=== PATIENT | female | born 1975 | race Hispanic/Latino ===

== ENCOUNTER 2018-05-01 09:21 | Observation (INO) | payer OTHER ==
[~2018-05-01] VITALS: Ht 160 cm; Wt 99.8 kg
--- NOTE | 2018-05-01 09:59 | NUR ---
USED [employer] TO PERFORM ASSESSMENT ON PT
[2018-05-01 10:07] LABS: BASOPHILS % 0.5 % (0.0-1.0); EOSINOPHILS # (AUTO) 0.3 (0.0-0.4); EOSINOPHILS % 3.9 % (0.0-6.0); LYMPHOCYTES # (AUTO) 2.4 (1.0-3.2); LYMPHOCYTES % 36.1 % (18.0-39.1); MEAN CORPUSCULAR HEMOGLOBIN 29.8 pg (28-32); MEAN CORPUSCULAR HGB CONC 33.3 g/dL (31-35); MEAN CORPUSCULAR VOLUME 89.3 fL (81-99); MONOCYTES # (AUTO) 0.4 (0.2-0.8); MONOCYTES % 6.5 % (4.4-11.3); NEUTROPHILS # (AUTO) 3.5 (2.1-6.9); NEUTROPHILS % 52.8 % (38.7-80.0); PLATELET COUNT 303 x10e3/uL (140-360); RED BLOOD COUNT 4.03 x10e6/uL (3.6-5.1); RED CELL DISTRIBUTION WIDTH 13.3 % (11.7-14.4)
[2018-05-01 10:24] LABS: INR 0.92; PROTHROMBIN TIME 13.2 seconds (11.9-14.5)
[2018-05-01 10:25] LABS: PARTIAL THROMBOPLASTIN TIME 30.3 seconds (23.8-35.5)
[2018-05-01 10:28] LABS: ALANINE AMINOTRANSFERASE 20 IU/L (0-55); ALBUMIN 3.7 g/dL (3.5-5.0); ALBUMIN/GLOBULIN RATIO 1.1 (0.8-2.0); ALKALINE PHOSPHATASE 53 IU/L (40-150); ANION GAP 12.2 mmol/L (8-16); BLOOD UREA NITROGEN 9 mg/dL (7-26); BUN/CREATININE RATIO 14 (6-25); CALCIUM 8.4 mg/dL (8.4-10.2); CARBON DIOXIDE 24 mmol/L (22-29); CHLORIDE 107 mmol/L (98-107); CREATINE KINASE 55 IU/L (29-168); CREATININE, SERUM 0.64 mg/dL (0.57-1.11); EST GLOMERULAR FILTRATION RATE > 60 ML/MIN (60-); GLUCOSE 97 mg/dL (74-118); POTASSIUM 4.2 mmol/L (3.5-5.1); SODIUM 139 mmol/L (136-145)
[2018-05-01 10:30] LABS: CLARITY,URINE CLEAR (CLEAR); COLOR,URINE YELLOW (YELLOW)
[2018-05-01 10:31] LABS: BACTERIA,URINE FEW /HPF; BILIRUBIN,URINE NEGATIVE (NEGATIVE); EPITHELIAL CELLS,URINE FEW /LPF; KETONES,URINE NEGATIVE (NEGATIVE); LEUKOCYTE ESTERASE ,URINE NEGATIVE (NEGATIVE); NITRITE,URINE NEGATIVE (NEGATIVE); PROTEIN,URINE DIPSTICK NEGATIVE (NEGATIVE); URINE UROBILINOGEN 0.2 mg/dL (0.2 - 1)
[2018-05-01] MEDS ORDERED: SODIUM CHLORIDE 0.9% 1000ML 1,000 ML IV STA (10:33)
--- NOTE | 2018-05-01 11:05 | Diagnostic Imaging Report ---
EXAMINATION: CHEST 2 VIEWS INDICATION: Chest pain. COMPARISON: None FINDINGS: TUBES and LINES: None. LUNGS: Lungs are well inflated. Mild patchy left basilar opacity, likely atelectasis. There is no evidence of pneumonia or pulmonary edema. PLEURA: No pleural effusion or pneumothorax. HEART AND MEDIASTINUM: The cardiomediastinal silhouette is unremarkable. BONES AND SOFT TISSUES: No acute osseous lesion. Soft tissues are unremarkable. UPPER ABDOMEN: No free air under the diaphragm. IMPRESSION: No acute radiographic abnormality. Signed by: Dr. Deni Martin MD on 05/01/2018 11:01 AM
--- NOTE | 2018-05-01 11:18 | Diagnostic Imaging Report ---
Examination: CT head without contrast Clinical Indication: Headache. Technique: Transaxial noncontrast images from the skull base through the vertex were obtained. Sagittal and coronal reformatted images were done. Dose modulation, iterative reconstruction, and/or weight based adjustment of the mA/kV was utilized to reduce the radiation dose to as low as reasonably achievable. Comparison: None. Findings: Scalp: No abnormalities. Bones: Intact. No fractures. No blastic or lytic lesions. Brain sulci: Appropriate for patient's age. Ventricles: Normal in size and configuration. No hydrocephalus. Extra-axial space: No abnormalities. Parenchyma: No abnormal densities. No masses, hemorrhage, or acute or chronic cortical based vascular insults. Suprasellar region: No abnormalities. Craniocervical junction: The foramen magnum is patent. No Chiari one malformation. Impression: No intracranial abnormality. Signed by: Dr. Lora Manuel M.D. on 05/01/2018 11:15 AM
[2018-05-01] MEDS ORDERED: DIPHENHYDRAMINE HCL INJ 50 MG/ML VIAL IV ONE (11:30)
[2018-05-01] MEDS ORDERED: METOCLOPRAMIDE HCL 10 MG/2ML VIAL IV ONE (11:30)
[2018-05-01] MEDS ORDERED: KETOROLAC TROMETHAMINE 30 MG/ML VIAL IV ONE (11:30)
--- NOTE | 2018-05-01 11:36 | NUR ---
pt states h/a now 08/22 after previously stating it was 11/22 and is no longer photosentive/loud noises; pt also states pain in chest now 06/22 after previously stating pain 10/22
[2018-05-01] MEDS ORDERED: NITROGLYCERIN 0.4 MG SUBL SL PRN (11:45)
[2018-05-01] MEDS ORDERED: ONDANSETRON HCL INJ 2MG/ML 2ML 2 MG/ML VIAL IV PRN (11:45)
--- OUTSIDE RECORDS SUMMARY | 2018-05-01 11:52 | XMS REPORT ---
Author [facility] Address Unknown Phone Unavailable Care Team Providers Care Director Motion Picture Name Role Phone Keely KRAUSE Unavailable Unavailable Problems This patient has no known problems. Allergies, Adverse Reactions, Alerts This patient has no known allergies or adverse reactions. Medications This patient has no known medications. Results Test Description Test Time Test Comments Text Results Atomic Results Result Comments CT BRAIN WO 2018-05-01 11:13:00 [place] [id number] Patient Name: ADEEL WINKLER MR #: [id number] : 1975 Age/Sex: 42/F Req #: [id number] Adm Physician: Ordered by: COLLINS KRAUSE MD Report #: [id number] Location: ER Room/Bed: Procedure: [id number] CT/CT BRAIN WO Exam Date: 05/01/18 Exam Time: 1040 REPORT STATUS: Signed Examination: CT head without contrast Clinical Indication: Headache. Technique: Transaxial noncontrast images from the skull base through the vertex were obtained. Sagittal and coronal reformatted images were done. Dose modulation, iterative reconstruction, and/or weight based adjustment of the mA/kV was utilized to reduce the radiation dose to as low as reasonably achievable. Comparison: None. Findings: Scalp: No abnormalities. Bones: Intact. No fractures. No blastic or lytic lesions. Brain sulci: Appropriate for patient's age. Ventricles: Normal in size and configuration. No hydrocephalus. Extra-axial space: No abnormalities. Parenchyma: No abnormal densities. No masses, hemorrhage, or acute or chronic cortical based vascular insults. Suprasellar region: No abnormalities. Craniocervical junction: The foramen magnum is patent. No Chiari one malformation. Impression: No intracranial abnormality. Signed by: Dr. Lora Manuel M.D. on 05/01/2018 11:15 AM Dictated By: LORA MARTIN MD 1115 Transcribed By: RALPH on 05/01/18 1115 COPY TO: COLLINS KRAUSE MD CHEST 2 VIEWS 2018-05-01 11:00:00 [place] [address] Patient Name: ADEEL WINKLER MR #: [id number] : 1975 Age/Sex: 42/F Req #: [id number] Adm Physician: Ordered by: COLLINS KRAUSE MD Report #: [id number] Location: ER Room/Bed: Procedure: [id number] DX/CHEST 2 VIEWS Exam Date: 05/01/18 Exam Time: 1040 REPORT STATUS: Signed EXAMINATION: CHEST 2 VIEWS INDICATION: Chest pain. COMPARISON: None FINDINGS: TUBES and LINES: None. LUNGS: Lungs are well inflated. Mild patchy left basilar opacity, likely atelectasis. There is no evidence of pneumonia or pulmonary edema. PLEURA: No pleural effusion or pneumothorax. HEART AND MEDIASTINUM: The cardiomediastinal silhouette is unremarkable. BONES AND SOFT TISSUES: No acute osseous lesion. Soft tissues are unremarkable. UPPER ABDOMEN: No free air under the diaphragm. IMPRESSION: No acute radiographic abnormality. Signed by: Dr. Amol Mauricio MD on 05/01/2018 11:01 AM Dictated By: AMOL MAURICIO MD 1101 Transcribed By: RALPH on 05/01/18 110 COPY TO: COLLINS KRAUSE MD
[2018-05-01] MEDS ORDERED: ASPIRIN 81 MG CHEW TAB PO ONE (12:30)
[2018-05-01 13:11] VITALS: BP 123/67
--- NOTE | 2018-05-01 13:24 | NUR ---
Received patient from ER, admitted to observation, 42 y.o Wolof speaking female with c/o chest pains radiating to left shoulder started last night lasting a few minutes and comes and goes, describes pain as crushing, associated symptoms are headaches but and has PMH of chronic headaches, had not taken any thing for the pains. HENT: Head atraumatic, normocephalic, Nose patient, throat clear, no exudates, no drainage, Eyes: Anicteric, no drainage GI: ABSNTND, BS positive all quads Respiratory: CTAB, no respiratory distress Cardiology: Normal S1, S2, no S3, S4 noted, no M/R/G : Supple Skin: Warm and moist, no open skin areas, no rash Extremities: +2 DPD and TPP Musculoskeletal: Moves all extremities Neuro: Alert and responsive, Patient on Tele #34 and SR at this time, call light within reach, will monitor
[2018-05-01 13:38] VITALS: BP 123/67
[2018-05-01] MEDS ORDERED: FAMOTIDINE 20 MG/2 ML VIAL IV SCH (19:00)
--- NOTE | 2018-05-01 19:00 | NUR ---
received report from day shift. patient is awake in bed. daughter at the bedside. no pain or distress. call light within reach
[2018-05-01 19:07] LABS: CREATINE KINASE 51 IU/L (29-168)
[2018-05-01 20:00] VITALS: BP 123/58
[2018-05-02] VITALS (7 sets, daily range): BP systolic 111–131; BP diastolic 61–70
[2018-05-02 04:02] LABS: CREATINE KINASE MB 0.6 ng/mL (0-5.0)
[2018-05-02 05:35] LABS: BASOPHILS % 0.5 % (0.0-1.0); EOSINOPHILS # (AUTO) 0.3 (0.0-0.4); HEMATOCRIT 34.5 % (34.2-44.1); HEMOGLOBIN 11.5 g/dL (12.0-16.0); LYMPHOCYTES # (AUTO) 2.4 (1.0-3.2); LYMPHOCYTES % 38.1 % (18.0-39.1); MEAN CORPUSCULAR HEMOGLOBIN 30.1 pg (28-32); MEAN CORPUSCULAR HGB CONC 33.3 g/dL (31-35); MEAN CORPUSCULAR VOLUME 90.3 fL (81-99); MONOCYTES # (AUTO) 0.5 (0.2-0.8); MONOCYTES % 7.8 % (4.4-11.3); NEUTROPHILS # (AUTO) 3.1 (2.1-6.9); NEUTROPHILS % 48.4 % (38.7-80.0); PLATELET COUNT 271 x10e3/uL (140-360); RED BLOOD COUNT 3.82 x10e6/uL (3.6-5.1); RED CELL DISTRIBUTION WIDTH 13.4 % (11.7-14.4)
[2018-05-02 06:04] LABS: CREATINE KINASE MB 0.6 ng/mL (0-5.0)
[2018-05-02 06:33] LABS: ALANINE AMINOTRANSFERASE 19 IU/L (0-55); ALBUMIN 3.4 g/dL (3.5-5.0); ALBUMIN/GLOBULIN RATIO 1.1 (0.8-2.0); ALKALINE PHOSPHATASE 48 IU/L (40-150); ANION GAP 12.8 mmol/L (8-16); BLOOD UREA NITROGEN 9 mg/dL (7-26); BUN/CREATININE RATIO 15 (6-25); CALCIUM 8.2 mg/dL (8.4-10.2); CARBON DIOXIDE 21 mmol/L (22-29); CHLORIDE 107 mmol/L (98-107); CHOL/HDL RATIO 3.8 (3.0-3.6); CHOLESTEROL 156 MD/DL (0-199); EST GLOMERULAR FILTRATION RATE > 60 ML/MIN (60-); GLUCOSE 94 mg/dL (74-118); HDL CHOLESTEROL 41 MG/DL (40-60); LDL CHOLESTEROL 94 MG/DL (60-130); POTASSIUM 3.8 mmol/L (3.5-5.1); SODIUM 137 mmol/L (136-145); TRIGLYCERIDES 105 MG/DL (0-149)
--- NOTE | 2018-05-02 07:18 | NUR ---
pt resting in bed, family at bedside, no c/o pain or s/s distress. able to make needs known. will continue to monitor.
--- NOTE | 2018-05-02 07:20 | NUR ---
Report given to oncoming nurse. Patient asleep in bed. No pain or distress. Call light within reach.
[2018-05-02] MEDS ORDERED: FAMOTIDINE 20 MG/2 ML VIAL IV SCH (08:30)
[2018-05-02] MEDS ORDERED: ASPIRIN 81 MG ENTERIC COATED PO SCH (09:00)
--- NOTE | 2018-05-02 13:24 | NUR ---
SOCIAL WORK INITIAL ASSESSMENT [facility] to bedside to discuss plan of care with patient/family. CM/SW role and care transitions discussed. Anticipated discharge plan discussed along with duration of care. CM/SW discussed patients right to make decisions in care. CM/SW work hours given. Patient lives: IN OWN HOUSE WITH FAMILY Admit/Transfer: VIA ED POA/Emergency contact: STORM MATHIAS [phone] Current/Previous Home Health: NONE [facility] Current/Previous DME: NONE Other Services: NONE Employment Status: HOUSEWIFE Areas of Concerns: NONE Referral Needs: NONE Education Needs: NONE IMM/GARCIA given and signed (if applicable): NA Goal for discharge: RETURN HOME NO NEEDS. CM/SW left business card at the bedside with contact information. Name and number was also written on the patients whiteboard. Patient verbalized understanding of discussion. CM will follow-up with ongoing discharge and transition of care needs.
--- NOTE | 2018-05-02 13:26 | NUR ---
POST DISCAHRGE STATUS CODE FORM FILED IN CHART NO NEEDS RETURNING HOME
--- NOTE | 2018-05-02 13:47 | NUR ---
pt to dc, pending ride. reviewed dc instructions with pt, family at bedside, verbalized understanding.
== END 2018-05-02 17:20 | disposition home or self-care (01) ==
LOC: ER 09:21 → ERHOLD 11:42 → IMCU 13:03
DX: R07.89 Other chest pain (principal); G43.909 Migraine, unspecified, not intractable, without status migrainosus; R94.31 Abnormal electrocardiogram [ECG] [EKG]
CPT/HCPCS: 36415; 70450; 71046; 80053; 80061; 81001; 82550; 82553; 83735; 83880; 84484; 85025; 85610; 85730; 93005; 99285; G0378; J1200; J1885; J2765; J7030